=== PATIENT | female | born 1995 | race Caucasian/White ===

== ENCOUNTER → 2022-06-26 | Outpatient (REF) | payer OTHER | LOC: M WUC 17:34 | PROVIDERS: ATTEND Physician Assistant | DX: J02.9 Acute pharyngitis, unspecified (principal) ==

== ENCOUNTER 2023-04-29 20:14 | Outpatient (CLI) | payer OTHER ==
[~2023-04-29] VITALS: Ht 175.3 cm; Wt 93.0 kg
[2023-04-29 20:48] VITALS: BP 130/74
== END 2023-04-29 21:33 | disposition home or self-care (01) ==
LOC: M LDO 20:14
PROVIDERS: ATTEND Obstetrics & Gynecology
DX: O36.8130 Decreased fetal movements, third trimester, not applicable or unspecified (principal); Z3A.30 30 weeks gestation of pregnancy; O26.893 Other specified pregnancy related conditions, third trimester; M54.9 Dorsalgia, unspecified; R10.2 Pelvic and perineal pain; O47.03 False labor before 37 completed weeks of gestation, third trimester
CPT/HCPCS: 59025; G0463

== ENCOUNTER → 2023-05-22 | Outpatient (CLI) | payer OTHER | LOC: M RAD 12:34 | PROVIDERS: ATTEND Obstetrics & Gynecology | DX: O43.219 Placenta accreta, unspecified trimester (principal); Z3A.30 30 weeks gestation of pregnancy ==

== ENCOUNTER → 2023-07-24 | Outpatient (CLI) | payer OTHER | LOC: M RAD 09:22 | PROVIDERS: ATTEND Obstetrics & Gynecology | DX: L53.9 Erythematous condition, unspecified (principal); K56.41 Fecal impaction ==